=== PATIENT | male | born 1940 | race Caucasian/White ===

== ENCOUNTER 2020-07-16 03:31 | Emergency (ER) | payer MEDICARE, OTHER ==
[~2020-07-16] VITALS: Ht 177.8 cm; Wt 93.2 kg
[2020-07-16] MEDS ORDERED: LIDOcaine 1% 30ml preserv. free vial IJ ONE ×2 (04:00→04:20)
[2020-07-16 04:19] LABS: BASOPHILS % (AUTO) 0.6 % (0-1); EOSINOPHILS # (AUTO) 0.3 X10'3 (0-0.9); HEMATOCRIT 41.9 % (42.0-52.0); HEMOGLOBIN 13.9 g/dl (14.0-17.9); LYMPHOCYTES # (AUTO) 1.6 X10'3 (1.1-4.8); LYMPHOCYTES % (AUTO) 29.1 % (21-51); MEAN CORPUSCULAR HGB CONC 33.3 g/dL (33.0-36.5); MEAN CORPUSCULAR VOLUME 99.2 FL (78-98); MEAN PLATELET VOLUME 7.9 FL (7.4-10.4); MONOCYTES # (AUTO) 0.8 X10'3 (0-0.9); MONOCYTES % (AUTO) 14.6 % (2-12); NEUTROPHILS # (AUTO) 2.7 X10'3 (1.8-7.7); NEUTROPHILS % (AUTO) 50.7 % (42-75); PLATELET COUNT 249 X10'3 (140-440); RED BLOOD COUNT 4.22 X10'6 (4.70-6.10); RED CELL DISTRIBUTION WIDTH 12.8 % (11.5-14.5); WHITE BLOOD COUNT 5.3 X10'3 (4.5-11.0)
[2020-07-16 04:24] LABS: ALBUMIN 3.8 G/DL (3.4-5.0); ANION GAP 12 (8-16); BLOOD UREA NITROGEN 20 MG/DL (7-18); BUN/CREATININE RATIO 17.2 (5.4-32.0); CALCIUM 9.5 MG/DL (8.5-10.1); CHLORIDE 103 MMOL/L (99-107); CREATININE 1.16 MG/DL (0.60-1.10); GLUCOSE 96 MG/DL (70-104); POTASSIUM 4.2 MMOL/L (3.5-5.1); SODIUM 140 MMOL/L (135-145); TOTAL CARBON DIOXIDE 25.3 MMOL/L (24-32); eGFR 61 ML/MIN
--- NOTE | 2020-07-16 05:03 | NUR ---
TELE NEURO CONSULT ORDERED FROM [phone] AND PLACED IN QUE
--- NOTE | 2020-07-16 05:37 | NUR ---
WHILE MONITORING PT, NOTICED SOME PVC'S AND PAC'S. EKG STRIPS PRINTED AND GIVEN TO [facility]KS BAE[facility]. NO NEW ORDERS AT THIS TIME. PT DENIES ANY CP OR SOB. WILL CONTINUE TO MONITOR PT.
--- NOTE | 2020-07-16 08:38 | NUR ---
Pt to MRI
[2020-07-16] MEDS ORDERED: HYDR-3965 PO (11:00)
[2020-07-16 11:04] VITALS: BP 111/64
== END 2020-07-16 11:05 | disposition home or self-care (01) ==
LOC: ER 03:32
DX: M25.512 Pain in left shoulder (principal); I10 Essential (primary) hypertension; M48.02 Spinal stenosis, cervical region; G56.32 Lesion of radial nerve, left upper limb
CPT/HCPCS: 36415; 70450; 70551; 71045; 72141; 73030; 80048; 85025; 93005; 99285